=== PATIENT | female | born 1970 | race Caucasian/White ===

== ENCOUNTER 2022-03-16 05:31 | Observation (INO) | payer OTHER ==
[~2022-03-16] VITALS: Ht 177.8 cm; Wt 101.2 kg
[~2022-03-16 05:31] MED LIST: ADDERALL XR 3030 MG PO; ALLEGRA ALLERGY60 MG PO; BENAZEPRIL HCL10 MG PO; NAPROXEN250 MG PO; OMEPRAZOLE40 MG PO; PROZAC40 MG PO; ULTRAM 50MG50 MG PO
[2022-03-16] MEDS ORDERED: CELECOXIB 200 MG CAP ONE (06:08)
[2022-03-16] MEDS ORDERED: DEXAMETHASONE SOD PHOS 10 MG/1 ML VIAL ONE (06:08)
[2022-03-16] MEDS ORDERED: GABAPENTIN 300 MG CAP ONE (06:08)
[2022-03-16] MEDS ORDERED: SODIUM CHLORIDE 0.9% 500ML 500 ML ONE (06:27)
[2022-03-16] MEDS ORDERED: Vancomycin IV 1,000 MG ONE (06:27)
[2022-03-16] MEDS ORDERED: FENTANYL CITRATE/PF 100MCG/2 ML INJ ONE ×3 (06:59→17:06)
[2022-03-16] MEDS ORDERED: MIDAZOLAM HCL 2 MG/2 ML VIAL ONE ×2 (06:59→17:06)
[2022-03-16] MEDS ORDERED: TRANEXAMIC ACID 20 ML ONE (07:40)
[2022-03-16] MEDS ORDERED: HYDROCODONE/APAP 5MG-325MG TAB PO PRN (08:30)
[2022-03-16] MEDS ORDERED: SODIUM CHLORIDE 0.9% 1000ML 1,000 ML IV SCH (08:30)
[2022-03-16] MEDS ORDERED: HYDROCODONE/APAP 7.5MG-325MG 1 EA TAB PO PRN (08:30)
[2022-03-16] MEDS ORDERED: ONDANSETRON HCL INJ 2MG/ML 2ML 2 MG/ML VIAL IV PRN (08:30)
[2022-03-16] MEDS ORDERED: DOCUSATE SODIUM 100 MG CAP PO PRN (08:30)
[2022-03-16] MEDS ORDERED: ROPIVACAINE 246.25 MG, EPINEPHRINE HCL 1:1000 1ML 0.5 MG, CLONIDINE HCL 0.08 MG, KETORO... INJ ONE ×5 (08:30)
[2022-03-16] MEDS ORDERED: DIPHENHYDRAMINE HCL INJ 50 MG/ML VIAL IV PRN (08:30)
[2022-03-16] MEDS ORDERED: CELECOXIB 100 MG CAP PO SCH (09:00)
[2022-03-16] MEDS ORDERED: ASPIRIN 325 MG TAB PO SCH (09:00)
[2022-03-16 10:06] VITALS: BP 122/80
[2022-03-16 10:14] VITALS: BP 122/80
[2022-03-16 10:15] VITALS: BP 122/80
[2022-03-16 11:26] VITALS: BP 111/71
[2022-03-16] MEDS ORDERED: BUPIVACAINE 0.25% 30ML SDV ONE (12:07)
[2022-03-16] MEDS ORDERED: EPINEPHRINE HCL 1:1000 1ML 1 MG/ML AMP ONE (12:07)
[2022-03-16] MEDS ORDERED: ONDANSETRON HCL INJ 2MG/ML 2ML 2 MG/ML VIAL ONE (12:33)
[2022-03-16] MEDS ORDERED: EPHEDRINE SULFATE INJ 50 MG/ML VIAL ONE (12:33)
[2022-03-16] MEDS ORDERED: POVIDONE IODINE 0.05% 0.05 % ML PO ONE (12:33)
[2022-03-16] MEDS ORDERED: SEVOFLURANE INHAL SOLN 250 ML PEN BTL ONE (12:33)
[2022-03-16] MEDS ORDERED: DEXAMETHASONE SOD PHOS INJ 4 MG/ML SDV ONE (12:33)
[2022-03-16] MEDS ORDERED: PROPOFOL IV EMULSION 10 MG/ML 20 ML VIAL ONE (12:33)
[2022-03-16] MEDS ORDERED: PHENYLEPHRINE HCL 1% 10 MG/ML VIAL ONE (12:33)
[2022-03-16] MEDS ORDERED: ACETAMINOPHEN 1000 MG/100 ML IV ONE (12:33)
[2022-03-16] MEDS ORDERED: KETOROLAC TROMETHAMINE 30 MG/ML VIAL ONE (12:33)
[2022-03-16] MEDS ORDERED: GLYCOPYRROLATE INJ 0.2 MG/ML VIAL ONE (12:33)
[2022-03-16] MEDS ORDERED: LIDOCAINE HCL 2% LOCAL INJ 5 ML SDV VIAL INJ ONE (12:33)
[2022-03-17] MEDS ORDERED: ACETAMINOPHEN 1000 MG/100 ML IV PRN (08:30)
== END 2022-03-16 17:23 | disposition home or self-care (01) ==
LOC: OR 05:31 → PACU V 08:39 → MED/SURG 09:29
PROVIDERS: ADMIT Specialist; ATTEND Specialist
DX: M17.12 Unilateral primary osteoarthritis, left knee (principal); I10 Essential (primary) hypertension; Z20.822 Contact with and (suspected) exposure to COVID-19; Z01.818 Encounter for other preprocedural examination
CPT/HCPCS: 0223U; 27447; 36415; 73560; 86850; 86900; 86920; 93005; 94799; 97110; 97116; 97161; 97530; C1713; G0378; J0131; J0171; J0690; J1100 ×2; J1885; J2001; J2250; J2370; J2405; J2704; J2795; J3010; J3370; J7040; C1776